=== PATIENT | female | born 1985 | race Caucasian/White ===

== ENCOUNTER 2025-08-16 11:56 | Outpatient (CLI) | payer MEDICARE, MEDICAID, SELFPAY ==
--- OUTSIDE RECORDS SUMMARY | 2025-08-16 11:30 | XMS_ITS | Encounter Summary ---
Author Organization [facility] NADYA Ureña [facility] Address [address] [place] [address] Care Team Providers Care Receiving Coordinator Name Role Phone Unavailable Primary Care Provider Unavailabl e Reason for Referral * Laboratory Services (Routine) - Open Specialty Diagnoses / Procedures Referred By Contac t Referred To Contact Diagnoses Reactive thrombocytosis Family history of clotting disorder Procedures PROTHROMBIN FACTOR II MUTATION ANALYSIS Ivy Child MD [address] [place] [address] Phone: tel: fax: Referral ID Status Reason Start Date Expiration Date Visits Re quested Visits Authorized [id number] Open 08/16/2025 09/16/2026 1 1 NCIAL RETIREMENT PLAN SPECIALIST * Laboratory Services (Routine) - Open Specialty Diagnoses / Procedures Referred By Juan fay Referred To Contact Diagnoses Reactive thrombocytosis Family history of clotting disorder Procedures FACTOR V LEIDEN MUTATION Ivy Child MD [address] [place] [address] Phone: tel: fax: Referral ID Status Reason Start Date Expiration Date Visits Re quested Visits Authorized [id number] Open 08/16/2025 09/16/2026 1 1 NCIAL RETIREMENT PLAN SPECIALIST Reason for Visit * Reason Comments Establish Care Encounter Details Date Type Department Care Team (Late st Contact Info) Description 08/16/2025 11:30 AM FINANCIAL RETIREMENT PLAN SPECIALIST Office Visit [facility] Oncology and Hematology - Jaden [address] [place] [address] Ivy Child MD [address] [place] [address] Reactive thrombocytosis (Primary Dx); Family history of clotting disorder Social History Tobacco Use Types Packs/Day Years Used Date Smoking Tobacco: Former Cigarettes 0 Q uit: 08/18/2004 Tobacco Cessation:Counseling Given: Not Answered Alcohol Use Standard Drinks/Week Comments Never 0 (1 standard drink = 0.6 oz pur e alcohol) Feeling Safe Answer Date Recorded Are you in a relationship wi th someone who hurts you emotionally and/or physically? No 11/16/2024 Food Insecurity Answer Date Recorded Patient needs follow up regardin 12/17/2024 Transportation Needs Answer Date Record ed Patient needs follow up regardin 12/17/2024 Housing Stability Answer Date Recorded Social/Environmental Concerns No concerns Utility Needs Answer Date Recorded Patient needs follow up regardin 12/17/2024 Comments No Sex and Gender Information Value Date Recorded Sex Assigned at Not on file Legal Sex Female 2:43 PM FINANCIAL RETIREMENT PLAN SPECIALIST Gender Identity Not on file Sexual Orientation Not on file documented as of this encounter Last Filed Vital Signs Vital Sign Reading Time Taken Comments Blood Pressure 92/66 08/16/2025 11:10 AM FINANCIAL RETIREMENT PLAN SPECIALIST Pulse 82 08/16/2025 11:10 AM FINANCIAL RETIREMENT PLAN SPECIALIST Temperature 36.3 C (97.4 F) 08/16/2025 11:10 AM FINANCIAL RETIREMENT PLAN SPECIALIST Respiratory Rate - - Oxygen Saturation - - Inhaled Oxygen Concentration - - Weight 119.2 kg (262 lb 12.8 oz) 2024 11:10 AM FINANCIAL RETIREMENT PLAN SPECIALIST Height 160 cm (5' 3) 08/16/2025 11:10 AM FINANCIAL RETIREMENT PLAN SPECIALIST Body Mass Index 46.55 08/16/2025 11:10 AM FINANCIAL RETIREMENT PLAN SPECIALIST documented in this encounter Plan of Treatment Upcoming Encounters Date Type Department Care Team (Late st Contact Info) Description 09/20/2025 4:30 PM FINANCIAL [employer]IREMENT [employer]AN SPECIALIST Telephone Check Up [facility] Oncology and Hematology - Jaden [address] [place] [address] Geraldo Knott MD [address] [facility] [address] [place] [id number] Scheduled Orders Name Type Priority Associated Diagnoses Orde r Schedule CBC WITH DIFFERENTIAL Lab Routine Reactive thrombocytosis Family history of clotting disorder Ordered: 08/16/2025 COMPREHENSIVE METABOLIC PANEL Lab Routine Reactive thrombocytosis Family history of clotting disorder Ordered: 08/16/2025 IRON, TIBC, AND PERCENT SATURATION Lab Routine Reactive thrombocytosis Family history of clotting disorder Ordered: 08/16/2025 FERRITIN Lab Routine Reactive thrombocytosis Family history of clotting disorder Ordered: 08/16/2025 VITAMIN B12 AND FOLATE Lab Routine Reactive thrombocytosis Family history of clotting disorder Ordered: 08/16/2025 TSH Lab Routine Reactive thrombocytosis Family history of clotting disorder Ordered: 08/16/2025 FACTOR V LEIDEN MUTATION Lab Routine Reactive thrombocytosis Family history of clotting disorder Ordered: 08/16/2025 PROTHROMBIN FACTOR II MUTATION ANALYSIS Lab Routine Reactive thrombocytosis Family history of clotting disorder Expected: 08/16/2025, Expires: 08/16/2026 PROTEIN C & S ACTIVITY Lab Routine Reactive thrombocytosis Family history of clotting disorder Ordered: 08/16/2025 LUPUS ANTICOAGULANT W/REFLEX CONFIRMATION Lab Routine Reactive thrombocytosis Family history of clotting disorder Ordered: 08/16/2025 ANTITHROMBIN III ACTIVITY Lab Routine Reactive thrombocytosis Family history of clotting disorder Ordered: 08/16/2025 CARDIOLIPIN IGG/IGM Lab Routine Reactive thrombocytosis Family history of clotting disorder Ordered: 08/16/2025 documented as of this encounter Visit Diagnoses Diagnosis Reactive thrombocytosis- Primary Family history of clotting disorder Family history of other blood disorders documented in this encounter
--- OUTSIDE RECORDS SUMMARY | 2025-08-16 12:28 | XMS_ITS | Clinical Summary ---
Author Organization [facility] Address [address] [place] [address] Care Team Providers Care Demand Generator Manager Name Role Phone Jaymie Neal MD Primary Care Provider Jimmy Sanchez MD Unavailable [phone] Source Comments [facility],non-owned Affiliates and Associated Physician Practices is amultiple site organization consisting of ambulatory clinics and hospital sitesin [place], [place], [place] and [place]. This disclosure is being madepursuant to the Care Everywhere program and may not contain all information available regarding this patient. Last updated 18.[facility] Allergies No known active allergies Medications * Be aware that medications may not be up to date on this document. Alwaysverify current medications with the patient. buPROPion XL 24hr (Wellbutrin-XL) 300 MG tablet Take 1 (one) tablet by mouth once daily Active cyclobenzaprine (Flexeril) 10 MG tablet Take 1 (one) tablet by mouth 3 times daily as needed Active Vraylar 1.5 MG capsule Take 1 (one) capsule by mouth once daily 5 Active Cholecalciferol (vitamin D3) 1.25 MG (43358 UT) capsule Take 1 (one) capsule by mouth every 7 days (once a week) Tuesdays 5 Active hydrOXYzine HCl (Atarax) 50 MG tablet Take 1 (one) tablet by mouth 3 times daily as needed 5 Active Unithroid 100 MCG tablet Take 1 (one) tablet by mouth once daily Active rosuvastatin (Crestor) 40 MG tablet Take 1 (one) tablet by mouth once daily 5 Active ursodiol (Actigall) 300 MG capsule Take 3 (three) capsules by mouth 2 times daily 5 Active omeprazole (PriLOSEC) 20 MG capsule Take 1 (one) capsule by mouth daily before breakfast 30 capsule 3 5 Active buPROPion (Wellbutrin) 75 MG tablet Take 2 (two) tablets by mouth 2 times daily 5 Active hydroxychloroqu ine (Plaquenil) 200 MG tablet Take 1 (one) tablet by mouth once daily 5 Active traZODone (Desyrel) 50 MG tablet at bedtime 5 Active albuterol HFA (Proventil; Ventolin; Proair) 108 (90 Base) MCG/ACT inhaler 5 Active Active Problems Problem Noted Date Diagnosed Date Pre-op evaluation 06/23/2025 Encounters Date Type Department Care Team Description 07/09/2025 Office Visit External [facility] [address] [place] [address], [facility] [address] [place] [address] Sean Sidhu MD 06/25/2025 Telephone [facility] [address] [place] [address], [facility] [address] [place] [address] Sean Sidhu MD Discuss Surgery 06/24/2025 Telephone [facility] [address], [address] [place] [address] Rody Lopez Surgery Scheduling (CANCELLATION/) 06/24/2025 Telephone [facility] [address] [facility], [facility] [address] [place] [address] Sean Sidhu MD Surgery Cancellation 06/23/2025 Telephone [facility] [address] [place] [address] Selvin Bull, AIRLINE DISPATCHER-JUMPBASTING CANVAS BASTER Coordination Of Care 06/22/2025 12:00 PM KITCHEN LEAD Clinical Support [facility] [address] [place] [address], [address] [place] [address] Morbid obesity (HCC) 06/22/2025 Office Visit External [facility] [address], [address] [place] [address] Sean Sidhu MD 06/22/2025 Results Follow-Up [facility] [address] [place] [address] Selvin Bull, AIRLINE DISPATCHER-JUMPBASTING CANVAS BASTER 06/21/2025 1:30 PM KITCHEN LEAD - 06/21/2025 11:59 PM KITCHEN LEAD Hospital Encounter [facility] [address] [place] [address] Sean Sidhu MD Discharge Disposition: Home or Self Care 06/21/2025 Travel 06/18/2025 Travel 06/17/2025 Telephone [facility] [address] [place] [address], [address] [place] [address] Sean Sidhu MD Surgery Scheduling 06/10/2025 Telephone [facility] [address] [place] [address], [facility] [address] [place] [address] Sean Sidhu MD Pre Authorization (Lap revision w/hhr) 06/09/2025 2:15 PM CDT Video Visit [facility] [address] [place] [address], [facility] [address] [place] [address] Morbid obesity (HCC) 06/09/2025 Orders Only [facility] [address] [place] [address], [facility] [address] [place] [address] Sean Sidhu MD Morbid obesity (HCC) ; Dietary counseling and surveillance 05/28/2025 8:35 AM CDT Anesthesia Event [facility] [address] [place] [address] Yunior Beltran MD 05/28/2025 8:20 AM CDT - 05/28/2025 8:40 AM CDT Surgery [facility] [address] [place] [address] Sean Sidhu MD ESOPHAGOGASTRODUODENOSCOPY (EGD) DIAGNOSTIC 05/28/2025 7:13 AM CDT - 05/28/2025 9:15 AM CDT Hospital Encounter [facility] [address] [place] [address] Sean Sidhu MD Surgery General Discharge Disposition: Home or Self Care 05/28/2025 Travel 05/24/2025 2:00 PM CDT Video Visit [facility] [id number] [place] [address], [address] [place] [address] Morbid (severe) obesity due to excess calories (HCC) 2025 11:00 AM CDT - 2025 11:59 PM CDT Hospital Encounter [facility] Imaging Services - Radiology [id number] [place] [address] Sean Sidhu MD Discharge Disposition: Home or Self Care 05/17/2025 Orders Only [facility] [address] [place] [address], [address] [place] [address] Kelle Srivastava RN Elevated glucose from Last 3 Months Family History Medical History Relation Name Comments Diabetes - Type 2 Mother Obesity Mother htn Mother Relation Name Status Comments Mother Social History Tobacco Use Types Packs/Day Years Used Date Smoking Tobacco: Never Smokeless Tobacco: Never Tobacco Cessation:Counseling Given: Not Answered Alcohol Use Standard Drinks/Week Comments Never 0 (1 standard drink = 0.6 oz pur e alcohol) Comments No Sex and Gender Information Value Date Recorded Sex Assigned at Not on file Legal Sex Female 8:27 AM CDT Gender Identity Not on file Sexual Orientation Not on file Last Filed Vital Signs Vital Sign Reading Time Taken Comments Blood Pressure 116/82 06/21/2025 2:25 PM KITCHEN LEAD Pulse 81 06/21/2025 2:25 PM KITCHEN LEAD Temperature 36.9 C (98.5 F) 06/21/2025 2:25 PM KITCHEN LEAD Respiratory Rate 13 05/28/2025 9:05 AM CDT Oxygen Saturation 98% 06/21/2025 2:25 PM KITCHEN LEAD Inhaled Oxygen Concentration - - Weight 121.4 kg (267 lb 9.6 oz) 06/09/2025 3:03 PM CDT Height 158.8 cm (5' 2.5) 06/09/2025 3:03 PM CDT Body Mass Index 48.16 06/09/2025 3:03 PM CDT Plan of Treatment Health Maintenance Due Date Last Done Comments MAMMOGRAM 1984 MEDICARE AWV 12 MONTHS 1984 HIV SCREENING 1999 HEPATITIS C SCREENING 05/16/2002 DTAP/TDAP/TD VACCINES (1 - Tdap) 2003 HEPATITIS B VACCINE (1 of 3 - 19+ 3-dose series) 2003 PNEUMOCOCCAL VACCINE (1 of 2 - PCV) 2003 HPV VACCINE (1 - 3-dose SCDM series) 2011 DEPRESSION SCREENING 08/19/2024 COVID-19 VACCINE (1 - 2024-2 6 season) 2025 INFLUENZA VACCINE (#1) 2025 SCREENING FOR DIABETES 06/21/2028 06/21/2025 ZOSTER VACCINE (1 of 2) 2034 HIB VACCINE Aged Out No longer eligi ble based on patient's age to complete this topic MENINGOCOCCAL (Group B) VACC INE SHARED DECISION-MAKING Aged Out No longer eligibl e based on patient's age to complete this topic MENINGOCOCCAL GROUPS A/C/Y/W VACCINE Aged Out No longer eligible b ased on patient's age to complete this topic Procedures Procedure Name Priority Date/Time Associated Diagnosis Comments EKG 12-LEAD STAT 06/21/2025 2:44 PM KITCHEN LEAD Preop testing VITAMIN B12 Routine 06/21/2025 2:31 PM KITCHEN LEAD Preop testing VITAMIN B1 Routine 06/21/2025 2:31 PM KITCHEN LEAD Preop testing DIFFERENTIAL MANUAL STAT 06/21/2025 2:16 PM KITCHEN LEAD Preop testing COMPREHENSIVE METABOLIC PANEL STAT 2:16 PM KITCHEN LEAD Preop testing CBC W AUTO DIFFERENTIAL STAT 06/21/20 2:16 PM KITCHEN LEAD Preop testing HELICOBACTER PYLORI UREASE (STL) STAT 05/28/2025 8:40 AM CDT Diagnosis deferred MD ESOPHAGOGASTRODUODENOSCOP Y TRANSORAL DIAGNOSTIC 05/28/2025 8:20 AM CDT EGD Routine 05/28/2025 7:35 AM CDT Gastroesophagea l reflux disease without esophagitis Hiatal hernia FL UGI SERIES Routine 2025 11:29 AM CDT Gastroesophagea l reflux disease without esophagitis Hiatal hernia from Last 3 Months Results * EKG 12-Lead (06/21/2025 2:44 PM KITCHEN LEAD) Pathologist [facility] Ventricular Rate 67 BPM [facility] Atrial Rate 67 BPM [facility] P-R Interval 172 ms [facility] QRS Duration ms 84 ms [facility] Q-T Interval ms 406 ms [facility] QTC Calculation (Bezet) 429 ms [facility] Calculated P Boswell 15 degrees [facility] Calculated R Boswell -8 degrees [facility] Calculated T Boswell 0 degrees [facility] Interpretation EKG Normal sinus rhythm Normal ECG No previous ECGs available Confirmed by LUCIANO SUBRAMANIAN MD ([id number]) on 06/22/2025 7:38:20 AM [facility] MUSE 06/21/2025 2:44 PM KITCHEN LEAD 06/22/2025 7:38 AM KITCHEN LEAD Mireya Crowder DO ECG ORDERABLES Edited Result - Final [facility] * VITAMIN B1 (06/21/2025 2:31 PM KITCHEN LEAD) Pathologist [facility] Vitamin B1 Whole Blood 120.0 66.5 - 200.0 nmol/L 06/28/2025 12:07 AM KITCHEN LEAD [facility] ([facility]) Blood BLOOD SPECIMEN / Unknown Venipuncture / Unknown 06/21/2025 2:31 PM KITCHEN LEAD 06/21/2025 2:59 PM KITCHEN LEAD Narrative [facility] ([facility]) - 06/28/2025 12:07 AM KITCHEN LEAD Test(s) 121120-[place]. B1, Whole Blood was developed and its performance characteristics determined by [facility]. It has not been cleared or approved by the Food and Drug Administration. Performed at: [facility] [id number] Switch Crew Supervisor: Naima Trevion MD, Phone: [phone] Sean Sidhu MD LAB - CHEMISTRY ORDERABLES Fi nal Result [facility] ([facility]) [address] [place] [address] * VITAMIN B12 (06/21/2025 2:31 PM KITCHEN LEAD) Pathologist [facility] Vitamin B12 692 213 - 816 pg/mL 06/21/2025 3:45 PM KITCHEN LEAD [facility] Blood BLOOD SPECIMEN / Unknown Venipuncture / Unknown 06/21/2025 2:31 PM KITCHEN LEAD 06/21/2025 2:59 PM KITCHEN LEAD Sean Sidhu MD LAB - CHEMISTRY ORDERABLES Fi nal Result Performing Organization Address City/[facility]/ZIP Co de Phone Number [facility] [address] [place] [phone] * (ABNORMAL) DIFFERENTIAL MANUAL (06/21/2025 2:16 PM KITCHEN LEAD) Pathologist [facility] Neutrophil % 44 41 - 74 % 06/21/2025 3:46 PM KITCHEN LEAD [facility] Lymphocyte % 39 17 - 47 % 06/21/2025 3:46 PM KITCHEN LEAD [facility] Monocyte % 3 3 - 11 % 06/21/2025 3:46 PM KITCHEN LEAD [facility] Eosinophil % 13(H) 0 - 7 % 06/21/2025 3:46 PM KITCHEN LEAD [facility] Basophil % 1 0 - 2 % 06/21/2025 3:46 PM KITCHEN LEAD [facility] Neutrophil Absolute 3.26 1.60 - 7.50 x10E9/L 06/21/2025 3:46 PM KITCHEN LEAD [facility] Lymphocyte Absolute 2.89 1.00 - 4.40 x10E9/L 06/21/2025 3:46 PM KITCHEN LEAD [facility] Monocyte Absolute 0.22 0.15 - 1.00 x10E9/L 06/21/2025 3:46 PM KITCHEN LEAD [facility] Eosinophil Absolute 0.96(H) 0.00 - 0.60 x10E9/L 06/21/2025 3:46 PM KITCHEN LEAD [facility] Basophil Absolute 0.07 0.00 - 0.13 x10E9/L 06/21/2025 3:46 PM KITCHEN LEAD [facility] RBC Morphology REVIEWED 06/21/2025 3:46 PM KITCHEN LEAD [facility] Schistocytes FEW(A) (none) 06/21/2025 3:46 PM KITCHEN LEAD [facility] Large Platelets PRESENT(A) (none) 3:46 PM KITCHEN LEAD [facility] Platelet Clumps PRESENT(A) (none) 3:46 PM KITCHEN LEAD [facility] Blood BLOOD SPECIMEN / Unknown Venipuncture / Unknown 06/21/2025 2:16 PM KITCHEN LEAD 06/21/2025 2:59 PM KITCHEN LEAD us Selvin Bull AIRLINE DISPATCHER-JUMPBASTING CANVAS BASTER LAB - HEMATOLOGY ORDERAB LES Final Result [facility] [address] [place] [address] * CBC W AUTO DIFFERENTIAL (06/21/2025 2:16 PM KITCHEN LEAD) WBC 7.4 4.0 - 10.7 x10E9/L 06/21/2025 3:46 PM KITCHEN LEAD [facility] RBC Count 4.92 3.90 - 5.20 x10E12/L 06/21/2025 3:46 PM KITCHEN LEAD [facility] Hemoglobin 13.5 11.9 - 15.8 g/dL 06/21/2025 3:46 PM KITCHEN LEAD [facility] Hematocrit 42.0 34.8 - 46.1 % 06/21/2025 3:46 PM KITCHEN LEAD [facility] MCV 85.4 80.0 - 98.0 fL 06/21/2025 3:46 PM KITCHEN LEAD [facility] MCH 27.4 26.7 - 33.6 pg 06/21/2025 3:46 PM KITCHEN LEAD [facility] MCHC 32.1 31.7 - 36.3 g/dL 06/21/2025 3:46 PM KITCHEN LEAD [facility] RDW-CV 12.9 11.3 - 14.8 % 06/21/2025 3:46 PM [facility] Platelet Count 373 150 - 420 x10E9/L 06/21/2025 3:46 PM [facility] MPV 11.1 7.8 - 11.4 fL 06/21/2025 3:46 PM [facility] Blood BLOOD SPECIMEN / Unknown Venipuncture / Unknown 06/21/2025 2:16 PM KITCHEN LEAD 06/21/2025 2:59 PM KITCHEN LEAD Selvin Bull AIRLINE DISPATCHER-JUMPBASTING CANVAS BASTER LAB - HEMATOLOGY ORDERAB LES Final Result [facility] [address] [place] [address] * (ABNORMAL) COMPREHENSIVE METABOLIC PANEL (06/21/2025 2:16 PM [facility]) Glucose 82 70 - 99 mg/dL 06/21/2025 3:02 PM [facility] Sodium 138 136 - 145 mmol/L 06/21/2025 3:02 PM [facility] Potassium 4.8 3.5 - 5.1 mmol/L 06/21/2025 3:02 PM [facility] Chloride 105 98 - 107 mmol/L 06/21/2025 3:02 PM [facility] CO2 20(L) 22 - 29 mmol/L 06/21/2025 3:02 PM [facility] Calcium 9.8 8.4 - 10.4 mg/dL 06/21/2025 3:02 PM [facility] Anion Gap 13 6 - 16 mmol/L 06/21/2025 3:02 PM [facility] BUN 14 5.3 - 18.7 mg/dL 06/21/2025 3:02 PM [facility] Creatinine 0.86 0.50 - 1.10 mg/dL 06/21/2025 3:02 PM [facility] Alkaline Phosphatase 923(H) 40 - 150 U/L 06/21/2025 3:02 PM [facility] ALT 272(H) 6 - 57 U/L 06/21/2025 3:02 PM [facility] AST 195(H) 10 - 48 U/L 06/21/2025 3:02 PM [facility] Protein Total 7.9 6.4 - 8.3 gm/dL 06/21/2025 3:02 PM [facility] Albumin 3.7 3.1 - 4.5 gm/dL 06/21/2025 3:02 PM [facility] Bilirubin Total 0.5 0.2 - 1.2 mg/dL 06/21/2025 3:02 PM [facility] eGFR by CKD-EPI 87(L) >=90 mL/min/1.7 3 m2 06/21/2025 3:02 PM [facility] Comment:Estimated Glomerular Filtration Rate (eGFR) calculated using the CKD-EPI Creatinine Equation (2020), per the National Kidney Foundation and [place] [employer] recommendations. Blood BLOOD SPECIMEN / Unknown Venipuncture / Unknown 06/21/2025 2:16 PM KITCHEN LEAD 06/21/2025 2:38 PM KITCHEN LEAD us Selvin FRAUSTO LAB - CHEMISTRY ORDERABL ES Final Result Performing Organization Address [facility] Co de Phone Number [facility] [id number] [place] [phone] * HELICOBACTER PYLORI UREASE (05/28/2025 8:40 AM CDT) Helicobacter pylori Urease Initial Negative Negative 05/29/2025 11:04 AM CDT [facility] Helicobacter pylori Urease Final Negative Negative 05/29/2025 11:04 AM CDT [facility] Microbiology GASTRIC ANTRAL BIOPSY SPECIMEN / Unknown 05/28/2025 8:40 AM CDT 05/28/2025 9:17 AM CDT us Sean Sidhu MD LAB - MICROBIOLOGY ORDERABLES Final Result Performing Organization Address City/[facility] Co de Phone Number [facility] [id number] [place] [phone] * EGD (05/28/2025 7:35 AM CDT) Report Endoscopy POC _ Patient Name: Leonila Muñoz Procedure Date: 05/28/2025 7:35 AM Date of : 1985 Admit Type: Outpatient Age: 40 Gender: Female Attending MD: Sean Sidhu MD, _ Procedure: Upper GI endoscopy Indications: Heartburn, Preoperative assessment for bariatric surgery to treat morbid obesity Providers: Sean Sidhu MD (Doctor) Referring MD: Jaymie Neal MD (Referring MD) Medicines: Propofol per Anesthesia Complications: No immediate complications. _ Estimated Blood Loss: Estimated blood loss: none. Procedure: Pre-Anesthesia Assessment: - Prior to the procedure, a History and Physical was performed, and patient medications and allergies were reviewed. The patient's tolerance of previous anesthesia was also reviewed. The risks and benefits of the procedure and the sedation options and risks were discussed with the patient. All questions were answered, and informed consent was obtained. Prior Anticoagulants: The patient has taken no anticoagulant or antiplatelet agents. ASA Grade Assessment: II - A patient with mild systemic disease. After reviewing the risks and benefits, the patient was deemed in satisfactory condition to undergo the procedure. After obtaining informed consent, the endoscope was passed under direct vision. Throughout the procedure, the patient's blood pressure, pulse, and oxygen saturations were monitored continuously. The Endoscope was introduced through the mouth, and advanced to the second part of duodenum. The upper GI endoscopy was accomplished without difficulty. The patient tolerated the procedure well. Findings: LA Grade A (one or more mucosal breaks less than 5 mm, not extending between tops of 2 mucosal folds) esophagitis with no bleeding was found. 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 This was characterized by an intact appearance. Scattered severe inflammation characterized by congestion (edema), erosions, friability, linear erosions and shallow ulcerations was found in the stomach. Biopsies were taken with a cold forceps for Helicobacter pylori testing using CLOtest. A medium-sized, 3 cm sliding hiatal hernia was found. The duodenal bulb, first portion of the duodenum and second portion of the duodenum were normal. _ Impression: - LA Grade A reflux esophagitis with no bleeding. - A sleeve gastrectomy was found, characterized by an intact appearance. - Gastritis, characterized by congestion (edema), erosions, friability, linear erosions and shallow ulcerations. Biopsied. - Medium-sized, 3 cm sliding hiatal hernia. - Normal duodenal bulb, first portion of the duodenum and second portion of the duodenum. Recommendation: - Await pathology results. - Discharge patient to home. - Resume previous diet. - Continue present medications. Procedure Code(s): --- Professional --- 71158, Esophagogastroduo denoscopy, flexible, transoral; with biopsy, single or multiple --- Technical --- 82785, Esophagogastroduo denoscopy, flexible, transoral; with biopsy, single or multiple Diagnosis Code(s): --- Professional --- K21.00, Gastro-esophageal reflux disease with esophagitis, without bleeding Z98.84, Bariatric surgery status K29.70, Gastritis, unspecified, without bleeding K44.9, Diaphragmatic hernia without obstruction or gangrene R12, Heartburn Z01.818, Encounter for other preprocedural examination E66.01, Morbid (severe) obesity due to excess calories --- Technical --- K21.00, Gastro-esophageal reflux disease with esophagitis, without bleeding Z98.84, Bariatric surgery status K29.70, Gastritis, unspecified, without bleeding K44.9, Diaphragmatic hernia without obstruction or gangrene R12, Heartburn Z01.818, Encounter for other preprocedural examination E66.01, Morbid (severe) obesity due to excess calories CPT copyright 2022 [employer]. All rights reserved. The codes documented in this report are preliminary and upon cylinder machine operator pulp drier review may be revised to meet current compliance requirements. __ Sean Sidhu MD 05/28/2025 8:43:24 AM Number of Addenda: 0 Note Initiated On: 05/28/2025 7:35 AM [facility] 05/28/2025 7:35 AM CDT Narrative Procedure Note Sean Sidhu MD - 05/28/2025 8:44 AM CDT PLAN: - f/u biopsy results - Pt to be scheduled for laparoscopic repair of hiatal hernia in additionto primary bariatric operation secondary to GERD/heartburn symptomsrelated to the hiatal hernia. - No follow up post procedure office appointment necessary, continue withpreoperative plan Sean Sidhu MD us Sean Sidhu MD GI PROCEDURE ORDERABLES Edite d Result - Final [facility] [place] [address] * FL Ugi Series (2025 11:29 AM CDT) Anatomical Region Laterality Modality Abdomen Computed Radiogr aphy 2025 4:26 PM CDT Impressions 2025 4:30 PM CDT IMPRESSION: Postsurgical changes compatible with gastric reduction. > Interpreting Provider: No Reyes MD on 2025 4:30 PM Narrative 2025 4:30 PM CDT PROCEDURE(s): FL UGI SERIES DATE AND TIME OF EXAM(s): 2025 11:30 AM INDICATION(s): K21.9: Gastroesophageal reflux disease without esophagitis. K44.9: Hiatal hernia. COMPARISON(s): None available. TECHNIQUE: Fluoroscopic spot and cine images were obtained during the procedure. Patient drank enteric contrast in various positions. FLUOROSCOPY DOSE: 2.93 mGy Reference air kerma (ka,r). FINDINGS: Contrast transits the esophagus into the stomach. No evidence of significant hiatal hernia is visualized. No evidence of mass lesion or stricture is seen. The stomach demonstrates changes compatible with gastric reduction. There is normal transit of contrast into the proximal small bowel loops. Procedure Note No Reyes MD - 2025 PROCEDURE(s): FL UGI SERIES DATE AND TIME OF EXAM(s): 2025 11:30 AM INDICATION(s): K21.9: Gastroesophageal reflux disease without esophagitis. K44.9: Hiatal hernia. COMPARISON(s): None available. TECHNIQUE: Fluoroscopic spot and cine images were obtained during the procedure. Patient drank enteric contrast in various positions. FLUOROSCOPY DOSE: 2.93 mGy Reference air kerma (ka,r). FINDINGS: Contrast transits the esophagus into the stomach. No evidence of significant hiatal hernia is visualized. No evidence of mass lesion or stricture is seen. The stomach demonstrates changes compatible withgastric reduction. There is normal transit of contrast into the proximal small bowel loops. IMPRESSION: Postsurgical changes compatible with gastric reduction. > Interpreting Provider: No Reyes MD on 2025 4:30 PM Sean Sidhu MD FLUOROSCOPY ORDERABLES Final Result from Last 3 Months Insurance [facility] [address] [place] [phone] MEDICARE MEDICAID - [place] Care Teams Demand Generator Manager Relationship Specialty Start Date End Date Jaymie Neal MD [address] [facility] [address] [place] [phone] PCP - General Internal Medicine 05/20/25 Jimmy Sanchez MD [address] [facility] [address] [place] [address] Physician Rheumatology 06/21/25
--- OUTSIDE RECORDS SUMMARY | 2025-08-16 12:28 | XMS_ITS | Encounter Summary ---
Author Organization [facility] Address [address] [place] [address] Care Team Providers Care Program Specialist Name Role Phone Unavailable Primary Care Provider Unavailabl e Encounter Details Date Type Department Care Team (Late Contact Info) Description 11/05/2024 Abstract [facility] Operating Room [address] [address] [place] [address] [facility] [address] [place] [address] Social History Tobacco Use Types Packs/Day Years Used Date Smoking Tobacco: Former Cigarettes 0 Q uit: 08/18/2004 Alcohol Use Standard Drinks/Week Comments Never 0 (1 standard drink = 0.6 oz pur e alcohol) Feeling Safe Answer Date Recorded Are you in a relationship wi th someone who hurts you emotionally and/or physically? No 10/30/2024 Food Insecurity Answer Date Recorded Social/Environmental Concerns No concerns Transportation Needs Answer Date Record ed Social/Environmental Concerns No concerns Housing Stability Answer Date Recorded Social/Environmental Concerns No concerns Utility Needs Answer Date Recorded Social/Environmental Concerns No concerns Comments No Sex and Gender Information Value Date Recorded Sex Assigned at Not on file Legal Sex Female 2:43 PM CLEAN RICE BROKER Gender Identity Not on file Sexual Orientation Not on file documented as of this encounter Plan of Treatment Upcoming Encounters Date Type Department Care Team (Late st Contact Info) Description 09/20/2025 4:30 PM CLEAN RICE BROKER Telephone Check Up [facility] Oncology and Hematology - [place] [address] [place] [address] Geraldo Knott MD [facility] [address] documented as of this encounter Visit Diagnoses Not on filedocumented in this encounter
--- OUTSIDE RECORDS SUMMARY | 2025-08-16 12:28 | XMS_ITS | Clinical Summary ---
Author Organization [facility] Address [address] [facility] [address] [address] Phone Care Team Providers Care Sales Operations Associate Name Role Phone Unavailable Primary Care Provider Unavailabl e Allergies No known active allergies Medications bupropion HCl (WELLBUTRIN SR ORAL) Take 300 mg by mouth daily. Active HYDROXYZINE HCL ORAL Take 50 mg by mouth daily. Active topiramate (TOPAMAX ORAL) Take 100 mg by mouth 2 times daily. Active cyclobenzaprine HCl (CYCLOBENZAPRIN E ORAL) Take 10 mg by mouth 3 times daily as needed. Active methylphenidate HCl (METADATE CD) 10 mg Controlled Dispense capsule Take 10 mg by mouth daily. Active pantoprazole (Protonix) 40 mg Tablet, Delayed Release (E.C.) Take 1 Tablet (40 mg) by mouth daily. 90 Tablet 3 09/04/2024 Active levothyroxine 100 mcg tablet Take 100 mcg by mouth daily. Active ursodioL (MICKY) 500 mg tablet Take 500 mg by mouth 4 times daily. Active amLODIPine (NORVASC) 5 mg tablet Take 5 mg by mouth daily. Active acetaminophen (TYLENOL) 500 mg tablet Take 500 mg by mouth every 6 hours as needed for Pain. Active HYDROcodone-stephanie taminophen 2.5-108 mg/5 mL SolutionIndicat ions:Post-op pain Take 15 mL by mouth every 6 hours as needed for Severe Pain. Max Daily Amount: 60 mL 300 mL 11/17/2024 2:27 PM CDT 11/16/2024 Active ondansetron (ZOFRAN ODT) 4 mg Tablet, Rapid Dissolve Take 1 Tablet (4 mg) by mouth every 6 hours as needed for Nausea. Dissolve tablet on top of tongue, then swallow with saliva. 28 Tablet 11/17/2024 2:27 PM CDT 11/16/2024 Active Active Problems Problem Noted Date Diagnosed Date Postoperative nausea and vomiting 11/16/2024 Hypothyroidism 11/16/2024 General medical exam 11/16/2024 Gastroesophageal reflux disease without esophagi tis 11/16/2024 Primary biliary cholangitis 11/16/2024 Encounters Date Type Department Care Team Description 08/16/2025 11:30 AM DIRECTOR STERILE PROCESSING Office Visit [facility] Oncology and Hematology - [place] [address] [place] [address] Ivy Child MD Reactive thrombocytosis (Primary Dx); Family history of clotting disorder 08/03/2025 External Device Data STL ABSTRACTION Provider, Abstract 07/20/2025 External Device Data STL ABSTRACTION Provider, Abstract 07/06/2025 External Device Data ST[place] ABSTRACTION Provider, Abstract 06/23/2025 External Device Data ST[place] ABSTRACTION Provider, Abstract 06/16/2025 External Device Data STL ABSTRACTION Provider, Abstract 05/25/2025 External Device Data STL ABSTRACTION Provider, Abstract 05/18/2025 External Device Data STL ABSTRACTION Provider, Abstract from Last 3 Months Social History Tobacco Use Types Packs/Day Years [...] on file Legal Sex Female 2:43 PM DIRECTOR STERILE PROCESSING Gender Identity Not on file Sexual Orientation Not on file Last Filed Vital Signs Vital Sign Reading Time Taken Comments Blood Pressure 92/66 08/16/2025 11:10 AM DIRECTOR STERILE PROCESSING Pulse 82 08/16/2025 11:10 AM DIRECTOR STERILE PROCESSING Temperature 36.3 C (97.4 F) 08/16/2025 11:10 AM DIRECTOR STERILE PROCESSING Respiratory Rate 18 11/17/2024 11:1 2 AM CDT Oxygen Saturation 99% 11/17/2024 11: 12 AM CDT Inhaled Oxygen Concentration - - Weight 119.2 kg (262 lb 12.8 oz) 2024 11:10 AM DIRECTOR STERILE PROCESSING Height 160 cm (5' 3) 08/16/2025 11:10 AM DIRECTOR STERILE PROCESSING Body Mass Index 46.55 08/16/2025 11:10 AM DIRECTOR STERILE PROCESSING Plan of Treatment Upcoming Encounters Date Type Department Care Team (Late st Contact Info) Description 09/20/2025 4:30 PM DIRECTOR STERILE PROCESSING Telephone Check Up [facility] Oncology and Hematology - [place] [address] [facility] [address] [place] [address] Geraldo Knott MD [address] [facility] [email or web address] [address] [place] [address] Health Maintenance Due Date Last Done Comments Pre-Diabetes and Diabetes Screening 1984 DTAP/TDAP/TD VACCINES (1 - Tdap) 2003 HEPATITIS B VACCINES (1 of 3 - 19+ 3-dose series) 09/2002 Traditional Medicare (ACO) Annual Wellness Visit 05/20 HPV/Cotest (21-29) 2005 CERVICAL CANCER SCREENING 2014 HPV/Cotest (30-65) 2014 PAP SMEAR 2014 BREAST CANCER SCREENING 2024 INFLUENZA VACCINE (#1) 2025 HPV VACCINES (No Doses Required) Completed Medical Devices Implanted Type Area Telephone Appointment Clerk Device Identifier Shelf Expiration Date Model / Serial / Lot Seamguard Endopath 60 [id number] - [id number] Implanted:Qt y: 1 on 11/16/2024 by Michael Jay MD at [facility] [employer] N/A: St[employer] [id number] 07/06/2027 [id number] [id number] / / [id number] Seamguard Endopath 60 [id number] - [id number] Implanted:Qt y: 1 on 11/16/2024 by Michael Jay MD at [facility] [employer] N/A: Stomach [employer] [id number] 07/13/2027 [id number] [id number] / / [id number] Seamguard Endopath 60 [id number] - [id number] Implanted:Qt y: 1 on 11/16/2024 by Michael Jay MD at [facility] [employer] N/A: Stomach [employer] [id number] 07/13/2027 [id number] 0A / / [id number] Seamguard Endopath 60 [id number] - [id number] Implanted:Qt y: 1 on 11/16/2024 by Michael Jay MD at [facility] [employer] N/A: Stomach [employer] [id number] 07/06/2027 [id number] [id number] / / [id number] Insurance MEDICARE PART A AND B [place]ID [place] [employer] Medicare Part D MEDICARE PART A AND B [place] Advance Directives For more information, please contact: [phone] * Full Code (Latest Code Status on File) Date Activated Date Inactivated Comments 11/16/2024 6:57 AM 11/17/2024 4:34 PM * Full Code Date Activated Date Inactivated Comments 11/16/2024 5:54 AM 11/16/2024 6:57 AM * Full Code Date Activated Date Inactivated Comments 09/04/2024 10:31 AM 09/04/2024 2:45 PM
--- OUTSIDE RECORDS SUMMARY | 2025-08-16 12:28 | XMS_ITS | Clinical Summary ---
Author Organization [facility] Address [address] [address] [place] [address] Care Team Providers Care Corn Press Operator Name Role Phone Jaymie Neal MD Primary Care Provider [phone] Encounters Date Type Department Care Team Description 06/08/2025 12:00 PM CDT Office Visit [facility], [facility] [address] [facility] [address] [place] [address] Miguel Herrera DO Hypercalcemia (Primary Dx); Primary biliary cholangitis (HCC); Obesity, class 3; Hypertensive chronic kidney disease; Pure hypercholesterolemia , not otherwise specified 06/02/2025 Documentation Only [facility] [address] [address] Miguel Herrera DO 06/01/2025 Documentation Only [address] [address] Miguel Herrera DO from Last 3 Months Social History Tobacco Use Types Packs/Day Years Used Date Smoking Tobacco: Never Assessed Comments Unknown Sex and Gender Information Value Date Recorded Sex Assigned at Not on file Legal Sex Female 2:03 PM EDT Gender Identity Not on file Sexual Orientation Not on file Last Filed Vital Signs Vital Sign Reading Time Taken Comments Blood Pressure 140/80 06/08/2025 11:53 AM CDT Pulse 70 06/08/2025 11:53 AM CDT Temperature 36.1 C (97 F) 06/08/2025 11:53 AM CDT Respiratory Rate 18 06/08/2025 11:53 AM CDT Oxygen Saturation 96% 06/08/2025 11:53 AM CDT Inhaled Oxygen Concentration - - Weight 122 kg (269 lb) 06/08/2025 11:53 AM CDT Height - - Body Mass Index - - Plan of Treatment Upcoming Encounters Date Type Department Care Team (Late st Contact Info) Description 06/14/2026 12:30 PM CDT Office Visit [facility], [facility] [address] [facility] [address] [place] [address] Miguel Herrera DO [address] [place] [address] Health Maintenance Due Date Last Done Comments Hepatitis B Vaccine (1 of 3 - 19+ 3-dose series) 05/20 Pneumococcal Vaccine: Peds ( 0 to 5 Years) and At-Risk Patients (6 to 49 Years) (1 of 2 - PCV) 2003 Influenza Vaccine (#1) 2025 Insurance Medicare Medicaid [place] Care Teams Corn Press Operator Relationship Specialty Start Date End Date Jaymie Neal MD [address] [facility], [address] [place] [address] PCP - General Internal Medicine 12/01/24
--- OUTSIDE RECORDS SUMMARY | 2025-08-16 12:28 | XMS_ITS | Encounter Summary ---
Author Organization [facility] Address [address] [place] [address] [place] [address] Care Team Providers Care Can Runner Name Role Phone Jaymie Neal MD Primary Care Provider Jimmy Sanchez MD Unavailable [phone] Encounter Details Date Type Department Care Team (Late st Contact Info) Description 06/22/2025 Results Follow-Up [facility] [address] [place] [address] Selvin Bull, OFFICE ANALYST-DIE GRINDER [address] [place] [address] Social History Tobacco Use Types Packs/Day Years Used Date Smoking Tobacco: Never Smokeless Tobacco: Never Alcohol Use Standard Drinks/Week Comments Never 0 (1 standard drink = 0.6 oz pur e alcohol) Comments No Sex and Gender Information Value Date Recorded Sex Assigned at Not on file Legal Sex Female 8:27 AM CDT Gender Identity Not on file Sexual Orientation Not on file documented as of this encounter Progress Notes * Chayito Sorensen RN - 06/22/2025 8:53 AM CST Labs from SEC visit faxed to PCP, radio television announcer Dr. Herrera, and GI Dr. Gabino Quevedo via [email or web address] per instructions. TENDER INSULATION BOARD documented in this encounter Plan of Treatment Not on file documented as of this encounter Visit Diagnoses Not on filedocumented in this encounter Care Teams Can Runner Relationship Specialty Start Date End Date Jaymie Neal MD [address] [place] [address] PCP - General Internal Medicine 05/20/25 Jimmy Sanchez MD [address] [place] [address] Physician Rheumatology 06/21/25 documented as of this encounter
--- OUTSIDE RECORDS SUMMARY | 2025-08-16 12:29 | XMS_ITS | Patient Health Record ---
Author Organization [facility] Address [facility] [place] [address] Care Team Providers Care Provider Relations Advocate Name Role Phone Laila Perry Unavailable [phone] Allergies No Known Allergies Reason For Referral No Information Medications Medication SIG (Take, Route, Frequency, Duration) Notes Start Date End Date Status PROzac 10 MG 1 capsule Orally three times a day; Duration: 30 days Active Pantoprazole Sodium 40 MG TAKE 1 TABLET BY MOUTH DAILY; Duration: 90 Active Strattera 80 MG 1 capsule in the morning Orally Once a day; Duration: 30 days Active Advair Diskus 100-50 MCG/ACT 1 puff Inhalation Twice a day; Duration: 30 days Active Levothyroxine Sodium 100 MCG 1 tablet in the morning on an empty stomach Orally Once a day; Duration: 30 days Active FLUoxetine HCl 20 MG 1 capsule Orally On ce a day Not-Taking Cyclobenzaprine HCl 10 MG 1 tablet Orally three times a day As needed Not-Taking amLODIPine Besylate 10 MG 1 tablet Orall y Once a day Not-Taking Topamax 100 MG 1 tablet Orally twic e a day Not-Taking Amoxicillin 500 MG 1 capsule Orally every 8 hrs; Duration: 5 day(s) 12/02/2023 Active Abilify 2 MG 1 tablet Orally Once a day Active hydrOXYzine HCl 50 MG 1 tablet as needed Orally three times a day Active tiZANidine HCl 4 MG 1 tablet at bedtime as needed Orally four times a day Active Ursodiol 500 MG 1 tablet Orally four times a day Active Social History Tobacco Use: Social History Observation Description Date Details (start date - stop date) Current Smoker NA - NA Tobacco Use/Smoking Question Answer Notes Are you a current smoker How often do you smoke cigarettes? every day How many cigarettes a day do you smoke? 6-10 Tobacco use other than smoking: Question Answer Notes Are you an other tobacco user? No Problems Problem Type SNOMED Code ICD Code Onset Dates Problem Status W/U Status Risk Notes Problem Gastroesophageal reflux disease (291047511) GERD (K21.9) Active confirmed Problem Anxiety (16361042) anxiety (F41.9) Active confi rmed Problem Acquired hypothyroidism (959882139) Acquired hypothyroidism (E03.9) Active confirmed Problem Bipolar disorder (93031595) Bipolar depression (F31.9) Active confirmed Problem Raynaud's disease (923201284) Raynaud's phenomenon without gangrene (I73.00) Active confirmed Problem Attention deficit hyperactivity disorder (209259148) Adult ADHD (F90.9) Active confirmed Problem Morbid obesity (772629257) Severe obesity (BMI >= 40) (E66.01) Active confirmed Plan Of Treatment Future Test Test Name Order Date Thyroxine (T4) Free, Direct, S 4 Triiodothyronine (T3), Free 12/16/2023 CMP14+LP+CBC/D/Plt+TSH 12/18/2023 Insurance Providers Payer Name Payer Address Payer Phone Subscriber Number Group Number Insured Name Patient Relationship to Insured Coverage Start Date Coverage End Date [place] [address] [place] [address] [id number] EDMOND FIGUEROA Self - patient is the insured 2 Medical (General) History Medical History History ICD Code primary bilary cholongitis hypothyroidism pseudotomor cerebri Borderline Personality Disorder Anxiety raynauds syndrome Surgical History Surgery Date(Month/Year) liver biopsy 2021 hysterectomy 2017 oophorectomy 2016 spinal tap 2009 2005 tonsillectomy and adenoidectomy 80's tubal 2012 Hospitalization History Reason Date(Month/Year) see above
[2025-08-16 12:51] LABS: Hematocrit 41.1 % (37.0-47.0); Hemoglobin 13.6 g/dL (12.0-15.0); Immature Granulocyte Percent A 0.2 % (0-0.5); Lymphocytes Absolute Auto 2.61 K/mm3 (0.9-3.2); Mean Corpuscular HGB Conc 33.1 g/dl (32-36); Mean Corpuscular Hemoglobin 27.9 pg (26-34); Mean Corpuscular Volume 84.2 fl (80-100); Nucleated Red Blood Cells Absolute Auto 0.000 K/mm3 (0.0-0.012); Nucleated Red Blood Cells Perc 0.0 % (0.0-0.2); Platelet Count Result 397 k/mm3 (150-375); Red Blood Count 4.88 M/mm3 (4.2-5.4); White Blood Count 5.9 K/mm3 (4.5-10.0)
[2025-08-16 16:15] LABS: Iron 150 ug/dL (37-170)
[2025-08-16 16:23] LABS: Alanine Aminotransferase 147 U/L (6-35); Albumin Level 4.0 g/dL (3.5-5.1); Alkaline Phosphatase 434 U/L (38-126); Anion Gap 7 mmol/L (4-12); Aspartate Amino Transferase 98 U/L (14-36); Bilirubin,Total 0.7 mg/dL (0.2-1.3); Blood Urea Nitrogen 14 mg/dL (7-17); Calcium 9.8 mg/dL (8.4-10.2); Carbon Dioxide 28 mmol/L (22-30); Chloride 104 mmol/L (98-107); Estimated Glomerular Filt Rate 54; Glucose 79 mg/dL (65-110); Potassium 4.0 mmol/L (3.4-5.0); Sodium 139 mmol/L (137-145); Total Protein 7.6 g/dL (6.3-8.2)
[2025-08-16 16:25] LABS: Percent Iron Saturation 49 % (20-50)
[2025-08-16 16:57] LABS: Ferritin 52.90 ng/mL (6.24-137)
[2025-08-16 16:59] LABS: Thyroid Stimulating Hormone 1.250 uIU/mL (0.465-4.680)
[2025-08-16 17:35] LABS: Vitamin B12 553.0 pg/mL (239-931)
[2025-08-17 12:08] LABS: Anticardiolipin Ab,IgG,Qn <9 GPL U/mL (0-14); Anticardiolipin Ab,IgM,Qn 10 MPL U/mL (0-12)
[2025-08-18 02:07] LABS: PTT-LA 31.6 sec (0.0-43.5)
== END 2025-08-16 11:57 | disposition home or self-care (01) ==
PROVIDERS: PCP Internal Medicine; Visit Provider Internal Medicine Hematology & Oncology
DX: D75.838 Other thrombocytosis (principal); Z83.2 Family history of diseases of the blood and blood-forming organs and certain disorders involving the immune mechanism; E03.9 Hypothyroidism, unspecified; K74.3 Primary biliary cirrhosis
CPT/HCPCS: 36415; 80053; 82607; 82728; 82746; 83540; 83550; 84443; 85025; 85300; 85303; 85306; 85732; 86147